=== PATIENT | male | born 1975 | race Caucasian/White ===

== ENCOUNTER 2023-09-07 06:10 | Emergency (ER) | payer OTHER ==
--- NOTE | 2023-09-07 06:46 | EDPHYS ---
Physician Documentation [facility] Name: Madhu Carrasquillo Age: 47 yrs Sex: Male : 1975 Arrival Date: 09/07/2023 Time: 06:10 Bed 15 Private MD: ED Physician Brad Lovelace HPI: 09/06 06:39 This 47 yrs old Male presents to ER via EMS with complaints of altered mental status. sp3 06:39 47-year-old male with history of diabetes and hypertension presents via EMS for altered sp3 mental status probable EtOH intake. No other symptoms reported. Patient will not state how much she is drank. Patient is uncooperative. ROS limited secondary to EtOH as is history and physical.. Historical: - Allergies: 06:23 No Known Allergies; cm10 - PMHx: 06:23 Diabetes mellitus; Hypertensive disorder; cm10 - Immunization history:: Adult Immunizations up to date. - Infectious Disease History:: Denies. - Social history:: Smoking status: Patient reports the use of cigarette tobacco products, smokes one pack cigarettes per day. ROS: 06:40 Unable to obtain ROS due to patient being uncooperative, sp3 Exam: 06:40 Constitutional: This is a well developed, well nourished patient who is awake, alert, sp3 and in no acute distress. Head/Face: Normocephalic, atraumatic. Eyes: Pupils equal round and reactive to light, extra-ocular motions intact. Lids and lashes normal. Conjunctiva and sclera are non-icteric and not injected. Cornea within normal limits. Periorbital areas with no swelling, redness, or edema. Neck: Trachea midline, no thyromegaly or masses palpated, and no cervical lymphadenopathy. Supple, full range of motion without nuchal rigidity, or vertebral point tenderness. No Meningismus. Chest/axilla: Normal chest wall appearance and motion. Nontender with no deformity. No lesions are appreciated. Cardiovascular: Regular rate and rhythm with a normal S1 and S2. No gallops, murmurs, or rubs. Normal PMI, no JVD. No pulse deficits. Respiratory: Lungs have equal breath sounds bilaterally, clear to auscultation and percussion. No rales, rhonchi or wheezes noted. No increased work of breathing, no retractions or nasal flaring. Abdomen/GI: Soft, non-tender, with normal bowel sounds. No distension or tympany. No guarding or rebound. No evidence of tenderness throughout. Back: No spinal tenderness. No costovertebral tenderness. Full range of motion. Skin: Warm, dry with normal turgor. Normal color with no rashes, no lesions, and no evidence of cellulitis. MS/ Extremity: Pulses equal, no cyanosis. Neurovascular intact. Full, normal range of motion. 06:40 Neuro: Patient ambulatory with no gross defects. Patient talking though appears to be intoxicated. Smell of alcohol present., Vital Signs: 06:17 BP 146 / 89; Pulse 88; Resp 18; Temp 98.1; Pulse Ox 95% on R/A; Weight 95.25 kg; Height cm10 6 ft. 1 in. ; Pain 0/10; 06:17 Body Mass Index 27.71 (95.25 kg, 185.42 cm) cm10 06:17 Pain Scale: Adult cm10 MDM: 06:36 Patient medically screened. sp3 06:43 Data reviewed: vital signs, nurses notes. ED course: Workup was initially ordered sp3 including laboratory values, EKG and CT scan of the head. However patient suddenly decided that he wants to go home once his girlfriend got here and he took off all of his leads and proceeded to walk out the front door. No SI, HI or psychosis found on initial exam. Patient contracted for safety. I urged him to stay however he states that he wants to leave and "nobody can stop me".. 06:44 ED course: We will place this as an informed discharge. Patient knows he may return at 3 any time if he changes his mind. I cannot rule out any life-threatening injury less workup is completed.. 09/06 06:31 Order name: Glucose, Ancillary Testing EDMS 09/06 06:29 Order name: EKG; Complete Time: 06:29 sp3 09/06 06:29 Order name: Cardiac monitoring; Complete Time: 06:57 sp3 09/06 06:29 Order name: EKG - Nurse/Tech; Complete Time: 06:57 sp3 09/06 06:29 Order name: IV Saline Lock sp3 09/06 06:29 Order name: Labs collected and sent 3 09/06 06:29 Order name: O2 Per Protocol; Complete Time: 06:57 sp3 09/06 06:29 Order name: O2 Sat Monitoring; Complete Time: 06:57 sp3 Administered Medications: No medications were administered Disposition Summary: 09/07/23 06:45 Discharge Ordered Notes: Location: Home sp3 Condition: Stable sp3 Diagnosis - AGAINST MEDICAL ADVICE, alcohol intoxication, altered mental status, other unknown sp3 Followup: sp3 - With: Private Physician - When: Upon discharge from the Emergency Department - Reason: Continuance of care Discharge Instructions: - Discharge Summary Sheet sp3 - Alcohol Intoxication sp3 Forms: - Medication Reconciliation Form sp3 - Antibiotic Education sp3 - Prescription Opioid Use sp3 - Patient Portal Instructions sp3 - Leadership Thank You Letter sp3 Signatures: Dispatcher [employer] EDBrad Sutton MD MD sp3 Karissa Leggett RN RN cm10 Corrections: (The following items were deleted from the chart) 06:56 06:29 Head Brain Wo [id number] ordered. EDMS EDMS
--- NOTE | 2023-09-07 06:46 | ER ---
Nurse's Notes [facility] Name: Madhu Carrasquillo Age: 47 yrs Sex: Male : 1975 Arrival Date: 09/07/2023 Time: 06:10 Bed 15 Private MD: Diagnosis: AGAINST MEDICAL ADVICE, alcohol intoxication, altered mental status, other unknown Presentation: 09/06 06:17 Chief complaint: EMS states: Called to patient's location due to patient being in cm10 vehicle and unresponsive. EMS states that when they arrived on scene patient was not responding. When patient was moved from truck to EMS stretcher, patient woke up and then they could not get him to wake up again. EMS states that they continuously sternal rubbed him en route and patient finally woke up. Patient does not have any recollection of what happened tonight and states that he has no complaints. PT reports having 2 beers and 1 shots. Coronavirus screen: Client denies travel out of the [place] in the last 14 days. At this time, the client does not indicate any symptoms associated with coronavirus-19. Ebola Screen: Patient denies travel to an Ebola-affected area in the 21 days before illness onset. No symptoms or risks identified at this time. Initial Sepsis Screen: Does the patient meet any 2 criteria? No. Patient's initial sepsis screen is negative. Does the patient have a suspected source of infection? No. Patient's initial sepsis screen is negative. Risk Assessment: Do you want to hurt yourself or someone else? Patient reports no desire to harm self or others. Onset of symptoms was September 07, 2023. 06:17 Method Of Arrival: EMS: [facility] 06:17 Acuity: YAKOV 3 cm10 Triage Assessment: 06:24 General: Appears in no apparent distress. comfortable, Behavior is calm, cooperative. cm10 Pain: Denies pain. Neuro: No deficits noted. Level of Consciousness is awake, alert, obeys commands, Oriented to person, place, time, situation, Appropriate for age. Respiratory: No deficits noted. Airway is patent Respiratory effort is even, unlabored, Respiratory pattern is regular, symmetrical. Historical: - Allergies: 06:23 No Known Allergies; cm10 - PMHx: 06:23 Diabetes mellitus; Hypertensive disorder; cm10 - Immunization history:: Adult Immunizations up to date. - Infectious Disease History:: Denies. - Social history:: Smoking status: Patient reports the use of cigarette tobacco products, smokes one pack cigarettes per day. Screenin:15 [facility] ED Fall Risk Assessment (Adult) History of falling in the last 3 months, pf1 including since admission No falls in past 3 months (0 pts) Confusion or Disorientation No (0 pts) Intoxicated or Sedated No (0 pts) Impaired Gait No (0 pts) Mobility Assist Device Used No (0 pt) Altered Elimination No (0 pt) Score/Fall Risk Level 0 - 2 = Low Risk Oriented to surroundings, Maintained a safe environment, Educated pt \T\ family on fall prevention, incl call for assistance when getting out of bed, Assessed \T\ reinforced patient's understanding of fall precautions, Provided non-skid footwear, Hourly rounding (assess needs \T\ fall precautionary measures) done, Used ambulatory aids as needed (educated on \T\ assisted with), Used gait belt as appropriate. Abuse screen: Denies threats or abuse. Nutritional screening: No deficits noted. Tuberculosis screening: No symptoms or risk factors identified. Assessment: 06:15 General: Appears in no apparent distress. comfortable, well developed, Behavior is pf1 anxious, uncooperative, Smells of alcohol. 06:15 Pain: Denies pain. Neuro: Level of Consciousness is awake, alert, obeys commands, pf1 confused, Oriented to person, place, situation. Cardiovascular: No deficits noted. Capillary refill < 3 seconds Patient's skin is warm and dry. Respiratory: No deficits noted. Airway is patent Respiratory effort is even, unlabored, Respiratory pattern is regular, symmetrical. GI: No deficits noted. No signs and/or symptoms were reported involving the gastrointestinal system. : No deficits noted. No signs and/or symptoms were reported regarding the genitourinary system. EENT: No deficits noted. No signs and/or symptoms were reported regarding the EENT system. Derm: No deficits noted. No signs and/or symptoms reported regarding the dermatologic system. 06:35 Reassessment: Patient refused all test and stated wanted to go home. Sufficient other pf1 stated will take him home. Patient ambulated with steady gait to truck. Vital Signs: 06:17 BP 146 / 89; Pulse 88; Resp 18; Temp 98.1; Pulse Ox 95% on R/A; Weight 95.25 kg; Height cm10 6 ft. 1 in. ; Pain 0/10; 06:17 Body Mass Index 27.71 (95.25 kg, 185.42 cm) cm10 06:17 Pain Scale: Adult cm10 ED Course: 06:15 Patient has correct armband on for positive identification. Placed in gown. Bed in low pf1 position. Call light in reach. Side rails up X2. 06:17 Patient arrived in ED. cm10 06:23 Triage completed. cm10 06:23 EKG done, by ED staff, reviewed by Brad Lovelace MD. pf1 06:24 Arm band placed on Patient placed in an exam room, on a stretcher, on secured entrance monitor, cm10 on pulse oximetry. 06:25 No provider procedures requiring assistance completed. Patient did not have IV access pf1 during this emergency room visit. patient refused IV. 06:36 Brad Lovelace MD is Attending Physician. sp3 06:45 Provided Education on: follow up. pf1 Administered Medications: No medications were administered Medication: 06:45 VIS not applicable for this client. pf1 Outcome: 06:45 Discharge ordered by . sp3 06:45 Discharged to home ambulatory, with family, pf1 06:45 Condition: stable pf1 06:45 Discharge instructions given to patient, family, Instructed on discharge instructions, follow up and referral plans. Demonstrated understanding of instructions, follow-up care, 06:58 Patient left the ED. pf1 Signatures: Brad Lovelace MD MD sp3 Tamica Rivera RN RN pf1 Karissa Leggett RN RN cm10 Corrections: (The following items were deleted from the chart) 06:55 06:54 VIS not applicable for this client. pf1 pf1
[2023-09-07 07:12] VITALS: BP 146/89; TEMP 98.1; O2SAT 95
--- NOTE | 2023-09-10 14:25 | EKG ---
Test Date: 2023-09-07 Test Time: 06:23:07 Junk Dealer: AHMET MEASUREMENT RESULTS: Intervals: Rate: 81 KS: 154 QRSD: 92 QT: 368 QTc: 427 [place]: P: 62 KS: 154 QRS: 75 T: 52 INTERPRETIVE STATEMENTS: Normal sinus rhythm Normal ECG No previous ECG available for comparison Electronically Signed On 09-10-23 14:14:50 CDT by Gonzalo Resendiz
== END 2023-09-07 06:58 | disposition home or self-care (01) ==
LOC: ER 06:10
DX: F10.129 Alcohol abuse with intoxication, unspecified (principal); F17.210 Nicotine dependence, cigarettes, uncomplicated
CPT/HCPCS: 82947; 93005; 99284